=== PATIENT | male | born 1955 ===

== ENCOUNTER → 2016-09-14 | Outpatient (CLI) | payer SELFPAY ==
--- NOTE | 2016-09-14 11:38 | RAD ---
Right foot radiograph 3 views Clinical indication: Right foot pain and swelling for 3 days with no known injury. Comparison: None. Findings: No acute fracture or traumatic malalignment. Scattered mid foot and forefoot osteoarthritis greatest in a moderate degree at the first MTP articulation. Vascular calcifications are noted. Minimal spurring at the origin of the plantar fascia on the calcaneus. Impression: 1. No acute osseous abnormality. 2. Midfoot and forefoot osteoarthritis greatest in moderate degree at the first MTP.
== END | disposition home or self-care (01) ==
LOC: DXRADRC 08:49
PROVIDERS: ATTEND General Practice
DX: M19.071 Primary osteoarthritis, right ankle and foot (principal)
CPT/HCPCS: 73630